=== PATIENT | female | born 1960 | race American Indian/Alaskan Native ===

== ENCOUNTER 2017-12-23 21:45 | Emergency (ER) | payer SELFPAY ==
[2017-12-23 22:59] LABS: Bilirubin,Urine NEG (Negative); Blood,Urine NEG (Negative); Color,Urine Yellow (Yellow); Mucus,Urine FEW /HPF; Protein,Urine <15 mg/dL mg/dL (Negative); Urobilinogen,Urine < 2.0 mg/dL (<2.0); WBC,Urine < 1.0 /HPF (0.0-6.0)
[2017-12-24] MEDS ORDERED: NACL 0.9% 1000 ML 1,000 ML IV ONE (01:08)
[2017-12-24] MEDS ORDERED: ZOFRAN IV ONE (01:08)
[2017-12-24] MEDS ORDERED: TYLENOL #3 PO ONE (01:09)
[2017-12-24] MEDS ORDERED: NACL ONE (02:49)
--- NOTE | 2017-12-24 03:11 | Emergency Department Report ---
HPI - General Chief Complaint: Abdominal Pain Time Seen by Provider: 12/24/17 00:32 - HPI HPI: The patient is a 57-year-old female presents for evaluation of abdominal pain. The patient reports abdominal pain for the past 2-3 days, constant, 10/10 in severity, crampy in quality, exacerbated with movement, and associated with nausea and nonbilious, nonbloody emesis. The patient denies trauma to the abdomen, fever, chills, night sweats, diarrhea, blood in the stool, dark tarry stool, dysuria, hematuria, flank pain, genital discharge, inability to pass flatus. ED Past Medical Hx - Past Medical History Previous Medical History?: Yes Hx Hypertension: Yes Additional medical history: stomach ulcers - Surgical History Past Surgical History?: Yes Additional Surgical History: tubal ligation, left leg surgery - Social History Smoking Status: Never Smoker Substance Use Type: None ED Review of Systems ROS: Stated complaint: N/V Other details as noted in HPI Constitutional: denies: fever ENT: denies: throat or neck pain Respiratory: denies: cough, shortness of breath Cardiovascular: denies: chest pain Endocrine: denies unexplained weight loss or gain Gastrointestinal: reports: abdominal pain, nausea Genitourinary: denies: dysuria Musculoskeletal: denies: leg swelling Skin: denies: rash Neurological: denies: headache Hematological/Lymphatic: denies: easy bleeding or easy bruising Psych: denies sadness or hopelessness Physical Exam - Physical Exam Vital Signs: Vital Signs 12/23/17 12/24/17 12/24/17 22:09 01:15 02:16 Temperature 98.2 F Pulse Rate 86 Respiratory 17 18 18 Rate Blood Pressure 134/85 Blood Pressure 134/85 [Right] O2 Sat by Pulse 96 99 Oximetry Physical Exam: General: well-nourished, well-developed, no acute distress Head: Normocephalic, atraumatic Eyes: normal sclera ENT: Mucous membranes are pale and dry Neck: trachea midline, neck supple, No neck stiffness, no cervical adenopathy Respiratory: Breath sounds equal bilaterally, no wheezing, rales, or rhonchi Cardio: S1 and S2 present, no murmurs, rubs, gallops, capillary refill is delayed Abdomen: Normoactive bowel sounds, soft abdomen, periumbilical and epigastric tenderness to palpation present, no pain at McBurney's point, no rigidity, no guarding or rebound tenderness Musc: No pitting edema Skin: No rash Neuro: Alert, oriented to person and location, disoriented to time and situation , no facial drooping, mildly slurred speech Psych: Normal affect ED Course Vital Signs 12/23/17 12/24/17 12/24/17 22:09 01:15 02:16 Temperature 98.2 F Pulse Rate 86 Respiratory 17 18 18 Rate Blood Pressure 134/85 Blood Pressure 134/85 [Right] O2 Sat by Pulse 96 99 Oximetry ED Medical Decision Making - Lab Data Result diagrams: 12/23/17 04:45 12/23/17 04:45 - Medical Decision Making The patient was seen and examined by myself. The patient is placed on a spot worker and continuous pulse ox. On initial evaluation, the patient was found to be in no distress, but refusing lab draw and CT scan abdomen and pelvis. The patient has mild cognitive deficit and is not competent to refuse evaluation and medical care as she is disoriented and cannot verbalize understanding of risks of refusing further evaluation and treatment and potential benefits of further evaluation and treatment. As such a 1013 was completed. The patient is given pain medicine. Lab results revealed a mildly elevated lipase of 95, and otherwise labs were nonrevealing including WBC, hemoglobin, hematocrit, electrolytes, renal function, LFTs. The patient was reevaluated and is now compliant with evaluation studies and treatments. The 101[address]ind[address]. A [address] scan of the abdomen and pelvis is pending. The patient is signed off to the oncoming morning shift ED physician, Dr. Sun, whom agrees to accept transfer Of care of the patient, to follow up on the patients pending CT scan of the abdomen and pelvis and to arrange ultimate appropriate disposition. Critical care attestation.: If time is entered above; I have spent that time in minutes in the direct care of this critically ill patient, excluding procedure time. ED Disposition Clinical Impression: Abdominal pain, acute, periumbilical, Dehydration Nausea and vomiting Qualifiers: Vomiting type: unspecified Vomiting Intractability: non-intractable Qualified Code(s): R11.2 - Nausea with vomiting, unspecified Acute pancreatitis Qualifiers: Pancreatitis type: unspecified pancreatitis type Acute pancreatitis complication: unspecified Qualified Code(s): K85.90 - Acute pancreatitis without necrosis or infection, unspecified Disposition: TO HOME OR SELFCARE Is pt being admited?: No Condition: Undetermined Instructions: Abdominal Pain (ED) Referrals: PRIMARY CARE, [Primary Care Provider] - 3-5 Days Time of Disposition: 03:11
[2017-12-24] MEDS ORDERED: ATIVAN ONE (03:28)
[2017-12-24] MEDS ORDERED: ATIVAN IM ONE (03:30)
[2017-12-24 05:10] LABS: Basophils % (Auto) 0.9 % (0.0-1.8); Eosinophils # (Auto) 0.1 K/mm3 (0.0-0.4); Hematocrit 39.9 % (30.3-42.9); Hemoglobin 12.9 gm/dl (10.1-14.3); Lymphocytes # (Auto) 1.8 K/mm3 (1.2-5.4); Lymphocytes % (Auto) 48.5 % (13.4-35.0); Mean Corpuscular HGB Conc 32 % (30-34); Mean Corpuscular Hemoglobin 28 pg (28-32); Mean Corpuscular Volume 86 fl (79-97); Monocytes # (Auto) 0.3 K/mm3 (0.0-0.8); Monocytes % (Auto) 8.8 % (0.0-7.3); Platelet Count 218 K/mm3 (140-440); Red Blood Count 4.65 M/mm3 (3.65-5.03); Red Cell Distribution Width 14.5 % (13.2-15.2)
[2017-12-24 05:21] LABS: Alanine Aminotransferase 16 units/L (7-56); Albumin 4.6 g/dL (3.9-5); BUN/Creatinine Ratio 30; Blood Urea Nitrogen 12 mg/dL (7-17); Calcium 10.1 mg/dL (8.4-10.2); Hemolysis Index 2
[2017-12-24 06:18] VITALS: BP 128/82
--- NOTE | 2017-12-24 06:56 | Cat Scan Report ---
FINAL REPORT EXAM: CT ABDOMEN PELVIS W CON HISTORY: abdominal pain TECHNIQUE: Routine axial imaging was obtained of the abdomen and pelvis following the intravenous injection of 100 cc of Omnipaque 300. Delayed imaging was obtained through the kidneys ureters and bladder. Sagittal coronal reconstructions were reviewed. FINDINGS: The lung bases are clear. Liver is at the upper limits of normal in size and reveals a 6.6 mm cyst in the right hepatic lobe. The gallbladder, biliary tree, pancreas, spleen, and adrenal glands appear normal. The kidneys show no evidence of stones or hydronephrosis. There is a 13 mm cyst in the middle 3rd of the right kidney. The vascular structures enhance normally. The bowel loops are not distended. There is no evidence of free fluid or adenopathy. The appendix is not enlarged. In the pelvis the uterus and bladder appear normal. The skeletal structures reveal a levoscoliosis of the lumbar spine. IMPRESSION: No acute process in the abdomen and pelvis. Benign-appearing cysts in the right hepatic lobe and right kidney.
--- NOTE | 2017-12-24 08:59 | Emergency Department Report ---
Blank Doc - Documentation Documentation: Patient states she is feeling better. No tenderness to palpation of her abdomen. Discussed CT results with patient. Patient stable for discharge. Patient to follow up with primary care. Patient given discharge instructions. Patient given prescription instructions. Labs discussed with patient. at bedside during discussion. Patient to be discharged home
== END 2017-12-24 09:45 | disposition home or self-care (01) ==
LOC: ED 21:45
DX: K85.90 Acute pancreatitis without necrosis or infection, unspecified (principal); E86.0 Dehydration; I10 Essential (primary) hypertension
CPT/HCPCS: 36415; 74177; 80053; 81001; 83690; 85025; 96361; 96372; 96374; 99284; J2060; J2405; J7030; Q9967

== ENCOUNTER 2018-02-10 13:38 | Emergency (ER) | payer SELFPAY ==
[2018-02-10 14:35] VITALS: BP 126/64
[2018-02-10] MEDS ORDERED: PEPCID PO ONE (16:21)
[2018-02-10] MEDS ORDERED: ZOFRAN ODT PO ONE (16:21)
[2018-02-10] MEDS ORDERED: ALUM-MAG HYDROX-SIMETH 200-200-20MG/5ML PO ONE (16:21)
--- NOTE | 2018-02-10 18:32 | Emergency Department Report ---
ED Abdominal Pain HPI - General Chief Complaint: Nausea/Vomiting/Diarrhea Stated Complaint: N&V Time Seen by Provider: 02/10/18 16:10 Source: patient, family Mode of arrival: Ambulatory Limitations: No Limitations - History of Present Illness Initial Comments: Patient is a 57-year-old black female past history alcohol abuse who is coming in with epigastric discomfort and nausea vomiting. Patient states she's vomited blood several times today. Patient is a poor historian and for the most part just says she's sick for most questions. Patient is unable to quantify how much pain she is in at this time. Patient is denying any diarrhea. - Related Data Previous Rx's Medication Instructions Recorded Last Taken Type Ondansetron [Zofran Odt] 4 mg PO Q6HR PRN #20 tab.rapdis 12/24/17 Unknown Rx Dicyclomine [Bentyl] 10 mg PO QID #15 capsule 02/10/18 Unknown Rx Famotidine [Pepcid] 40 mg PO QHS #20 tablet 02/10/18 Unknown Rx Ondansetron [Zofran Odt] 4 mg PO Q8HR PRN #10 tab.rapdis 02/10/18 Unknown Rx Allergies Allergy/AdvReac Type Severity Reaction Status Date / Time No Known Allergies Allergy Unverified 12/23/17 22:15 ED Review of Systems ROS: Stated complaint: N&V Other details as noted in HPI Comment: All other systems reviewed and negative ED Past Medical Hx - Past Medical History Hx Hypertension: Yes Additional medical history: stomach ulcers - Surgical History Additional Surgical History: tubal ligation, left leg surgery - Social History Smoking Status: Current Every Day Smoker Substance Use Type: None - Medications Home Medications: Home Medications Medication Instructions Recorded Confirmed Last Taken Type Ondansetron [Zofran Odt] 4 mg PO Q6HR PRN #20 tab.rapdis 12/24/17 Unknown Rx Dicyclomine [Bentyl] 10 mg PO QID #15 capsule 02/10/18 Unknown Rx Famotidine [Pepcid] 40 mg PO QHS #20 tablet 02/10/18 Unknown Rx Ondansetron [Zofran Odt] 4 mg PO Q8HR PRN #10 tab.rapdis 02/10/18 Unknown Rx ED Physical Exam - General Limitations: No Limitations General appearance: alert, in no apparent distress - Head Head exam: Present: atraumatic, normocephalic - Eye Eye exam: Present: normal appearance - ENT ENT exam: Present: mucous membranes moist - Neck Neck exam: Present: normal inspection - Respiratory Respiratory exam: Present: normal lung sounds bilaterally. Absent: respiratory distress, wheezes, rales, rhonchi - Cardiovascular Cardiovascular Exam: Present: regular rate, normal rhythm. Absent: systolic murmur, diastolic murmur, rubs, gallop - GI/Abdominal GI/Abdominal exam: Present: soft, normal bowel sounds. Absent: distended, tenderness, guarding, rebound - Extremities Exam Extremities exam: Present: normal inspection - Back Exam Back exam: Present: normal inspection - Neurological Exam Neurological exam: Present: alert, oriented X3 - Psychiatric Psychiatric exam: Present: normal affect, normal mood - Skin Skin exam: Present: warm, dry, intact, normal color. Absent: rash ED Course Vital Signs 02/10/18 14:32 Temperature 98.3 F Pulse Rate 79 Respiratory 16 Rate Blood Pressure 126/64 O2 Sat by Pulse 96 Oximetry ED Medical Decision Making - Medical Decision Making Patient's vomit was actually look that here in emergency department and was cleared to do not appear to be any blood present. Patient has been drinking this morning. Patient most likely has alcoholic gastritis given meds here in the emergency department for her nausea. Patient's was monitored appears stable and is resting and actually hungry. Patient be discharged home. Critical care attestation.: If time is entered above; I have spent that time in minutes in the direct care of this critically ill patient, excluding procedure time. ED Disposition Clinical Impression: Alcoholic gastritis Disposition: DC-01 TO HOME OR SELFCARE Is pt being admited?: No Does the pt Need Aspirin: No Condition: Stable Instructions: Gastritis (ED) Prescriptions: Famotidine [Pepcid] 40 mg PO QHS #20 tablet Dicyclomine [Bentyl] 10 mg PO QID #15 capsule Ondansetron [Zofran Odt] 4 mg PO Q8HR PRN #10 tab.rapdis PRN Reason: Nausea And Vomiting Referrals: PRIMARY CARE, [Primary Care Provider] - 3-5 Days
== END 2018-02-10 18:43 | disposition home or self-care (01) ==
LOC: EDBD 13:38 → ED 13:38
DX: K29.20 Alcoholic gastritis without bleeding (principal); I10 Essential (primary) hypertension; F17.200 Nicotine dependence, unspecified, uncomplicated; Z98.51 Tubal ligation status
CPT/HCPCS: 99282; Q0162

== ENCOUNTER 2018-03-01 21:17 | Emergency (ER) | payer MEDICARE ==
[2018-03-01 21:27] VITALS: BP 159/102
[2018-03-01] MEDS ORDERED: NACL 0.9% 1000 ML 1,000 ML IV ONE (21:28)
== END 2018-03-01 21:26 | disposition left against medical advice (07) ==
LOC: ED 21:17
DX: R10.9 Unspecified abdominal pain (principal); Z53.21 Procedure and treatment not carried out due to patient leaving prior to being seen by health care provider
CPT/HCPCS: 93005; 93010

== ENCOUNTER 2018-03-03 17:32 | Emergency (ER) | payer MEDICARE ==
--- NOTE | 2018-03-03 18:06 | Emergency Department Report ---
HPI - General Time Seen by Provider: 03/03/18 17:35 - HPI HPI: 57-year-old -[place] female presents to the emergency department via EMS from her residence with what appears to be either intoxication versus generalized altered mental status. The patient is admitting to having a drink today but says "it was just a small can." She does have a history of alcohol dependence and intoxication in the past and the last time she was here was for alcoholic gastritis. The patient says "I don't feel that well" and says that her stomach is upset. She has some nausea without vomiting currently. The patient is hard to understand and is a poor historian. There is no obvious last known well time and we do not have an obvious baseline mental status. Apparently a passerby or someone else at the residence called for EMS we do not know the reason why. ED Past Medical Hx - Past Medical History Hx Hypertension: Yes Hx Asthma: Yes (BRONCHITIS) Additional medical history: stomach ulcers - Surgical History Additional Surgical History: tubal ligation, left leg surgery - Social History Smoking Status: Never Smoker Substance Use Type: Alcohol - Medications Home Medications: Home Medications Medication Instructions Recorded Confirmed Last Taken Type Ondansetron [Zofran Odt] 4 mg PO Q6HR PRN #20 tab.rapdis 12/24/17 Unknown Rx Dicyclomine [Bentyl] 10 mg PO QID #15 capsule 02/10/18 Unknown Rx Famotidine [Pepcid] 40 mg PO QHS #20 tablet 02/10/18 Unknown Rx Ondansetron [Zofran Odt] 4 mg PO Q8HR PRN #10 tab.rapdis 02/10/18 Unknown Rx ED Review of Systems ROS: Stated complaint: DIFFICULTY BREATHING Other details as noted in HPI Comment: Unobtainable due to pts medical conditions Physical Exam - Physical Exam Physical Exam: GENERAL: The patient is well-developed well-nourished. HENT: Normocephalic. Atraumatic. Patient has moist mucous membranes. EYES: Extraocular motions are intact. Pupils equal reactive to light bilaterally. No nystagmus. NECK: Supple. Trachea is midline. CHEST/LUNGS: Clear to auscultation. There is no respiratory distress noted. HEART/CARDIOVASCULAR: Regular. There is mild tachycardia. There is no murmur. ABDOMEN: Abdomen is soft, nontender. Patient has normal bowel sounds. There is no abdominal distention. SKIN: Skin is warm and dry. NEURO: The patient is awake, alert, and oriented but does appear intoxicated. Cranial nerves II through XII grossly intact. No pronator drift. No dysmetria. No facial asymmetry. MUSCULOSKELETAL: There is no tenderness or deformity. There is no limitation range of motion. There is no evidence of acute injury. ED Course - Reevaluation(s) Reevaluation #1: 03/03/18 18:17 All the patient does appear intoxicated, she is refusing anything that involves a needlestick. She has allowed urine to be sent, an EKG to be done and will allow a CT scan of the head to rule out a bleed or possibly ischemic event. The patient is currently calm and appropriate and therefore we will respect her wishes for no needlestick and her denial for obtaining blood work. We will continue to monitor her. ED Medical Decision Making - EKG Data -: EKG Interpreted by Pr EKG shows normal: sinus rhythm, axis, intervals, QRS complexes (Q waves to the septal leads), ST-T waves Rate: normal - EKG Data When compared to previous EKG there are: no significant change Interpretation: unchanged when compared t (03/01/18) - Radiology Data Radiology results: report reviewed CT of the head does not show any acute intracranial process including no ischemia, shift, mass, bleeding or skull fracture. - Medical Decision Making The patient originally came in appearing intoxicated but denies heavy drinking. However the patient is awake, alert and oriented. The patient would not allow blood work to be done as she does not want anything that involves a needlestick. Going back into her records, she did the same thing when she was here for alcoholic gastritis in January. However the patient was compliant with a CT scan of the head that did not show any signs of any bleed, shift, mass, ischemic changes or any acute process. She'll add an EKG be done which did not show any signs of ST elevation ND, or dysrhythmia. And she gave us a urine sample that did not show any urinary tract infection or any positive illicit drugs on the urine drug screen. Since the patient was calm and appropriate and adamantly refused blood work to be done, she was monitored for about 9 hours in total in the emergency department. Over this time, the patient became more alert and less intoxicated appearing. Towards the end of her ED course the patient says she was feeling better and eventually got up and eloped. We noted that the last vital sign was placed in the chart was at about 6:30 PM and the patient eloped closer to 2 AM. When I last reevaluated her, she did not have any further tachycardia. - Differential Diagnosis alcohol intoxication, substance abuse, TIA Critical Care Time: No Critical care attestation.: If time is entered above; I have spent that time in minutes in the direct care of this critically ill patient, excluding procedure time. ED Disposition Clinical Impression: History of alcohol dependence Disposition: ELOPED Is pt being admited?: No Condition: Stable Referrals: PRIMARY CARE, [Primary Care Provider] - 3-5 Days Time of Disposition: 02:35
[2018-03-03 18:25] LABS: Bacteria,Urine 1+ /HPF (Negative); Bilirubin,Urine NEG (Negative); Blood,Urine NEG (Negative); Color,Urine Straw (Yellow); Protein,Urine <15 mg/dL mg/dL (Negative); Urobilinogen,Urine < 2.0 mg/dL (<2.0)
[2018-03-03 18:35] LABS: Amphetamine Screen,Urine PRESUMPTIVE NEGATIVE; Benzodiazepines Screen,Urine PRESUMPTIVE NEGATIVE; Cannabinoid Screen,Urine PRESUMPTIVE NEGATIVE; Cocaine Screen,Urine PRESUMPTIVE NEGATIVE; Methadone Screen,Urine PRESUMPTIVE NEGATIVE; Opiate Screen,Urine PRESUMPTIVE NEGATIVE
--- NOTE | 2018-03-03 18:44 | Cat Scan Report ---
FINAL REPORT PROCEDURE: CT HEAD/BRAIN WO CON TECHNIQUE: Computerized tomography of the head was performed without contrast material. HISTORY: AMS COMPARISON: No prior studies are available for comparison. FINDINGS: There is diffuse prominence of the ventricular system, which may be related to central atrophy. Temporal horns do not appear dilated out of proportion to the remainder of the ventricles. There is also cerebellar atrophy. There is no CT evidence of intracranial mass, hemorrhage, acute territorial infarction, or hydrocephalus. No acute fracture is seen. Minimal left maxillary sinus mucosal thickening. There is a trace amount of fluid density in the left mastoid.. IMPRESSION: No CT evidence of acute intracranial abnormality
[2018-03-03 18:50] VITALS: BP 108/67
== END 2018-03-04 03:07 | disposition left against medical advice (07) ==
LOC: ED 17:32
DX: F10.229 Alcohol dependence with intoxication, unspecified (principal); I10 Essential (primary) hypertension; J45.909 Unspecified asthma, uncomplicated; Z98.51 Tubal ligation status
CPT/HCPCS: 70450; 80307; 81001; 93005; 93010

== ENCOUNTER 2018-11-29 12:08 | Emergency (ER) | payer MEDICARE ==
[2018-11-29 12:21] VITALS: BP 181/103
--- NOTE | 2018-11-29 12:34 | Emergency Department Report ---
Blank Doc - Documentation Documentation: This is a 58-year-old female that presents with rash to neck, left axilla, and left abdominal area. Denies any SOB or facial swelling. This initial assessment/diagnostic orders/clinical plan/treatment(s) is/are subject to change based on patient's health status, clinical progression and re- assessment by fellow clinical providers in the ED. Further treatment and workup at subsequent clinical providers discretion. Patient/guardians urged not to elope from the ED as their condition may be serious if not clinically assessed and managed. Initial orders include: 1- Patient sent to [facility] for further evaluation and treatment
[2018-11-29] MEDS ORDERED: DECADRON IM ONE (12:57)
--- NOTE | 2018-11-29 12:59 | Emergency Department Report ---
ED Rash HPI - HPI Chief Complaint: Skin Rash Stated Complaint: RASH ALL OVER Time Seen by Provider: 11/29/18 12:21 Duration: WEEKS Location: Other (GEN; STARTED ON [facility]) Suspected Cause: Unknown Rash Symptoms: Yes Itching, No Facial Swelling, No Tongue/Oral Swelling, No Breathing Difficulties, No Choking Sensation, No Wheezing/Dyspnea, No Peeling, No Blistering, No Fever, No Lightheaded, No Malaise, No Myalgias Severity: moderate Other History: Patient is a 58-year-old female who comes to the ER today with a rash that appears like it has been present for some time. It is thick erythematous and scaly. It started on her torso and has spread to her arms and neck. Pt knows of no precipitating event or exposure. No known allergens. She denies having anything like this in the past. She has been using a cocktail of [id number]-[id number] creams and one prescription steroid cream when she states is not getting any better. She has not seen a primary care physician or steam pan sponger. Patient is ambulatory, nontoxic and afebrile on admission. There are no oral or ocular lesions. She has no fever. She is taking by mouth without difficulty. ED Review of Systems ROS: Stated complaint: RASH ALL OVER Other details as noted in HPI Comment: All other systems reviewed and negative Constitutional: denies: chills Eyes: denies: eye pain ENT: denies: throat pain Respiratory: denies: see HPI Cardiovascular: denies: palpitations Endocrine: denies: intolerance to cold Gastrointestinal: denies: nausea Genitourinary: denies: dysuria Musculoskeletal: denies: back pain Skin: as per HPI, rash Neurological: denies: headache Psychiatric: denies: anxiety Hematological/Lymphatic: denies: easy bleeding ED Past Medical Hx - Past Medical History Previous Medical History?: Yes Hx Hypertension: Yes Hx Asthma: Yes (BRONCHITIS) Additional medical history: stomach ulcers - Surgical History Past Surgical History?: Yes Additional Surgical History: tubal ligation, left leg surgery - Family History Family history: no significant - Social History Smoking Status: Never Smoker Substance Use Type: None - Medications Home Medications: Home Medications Medication Instructions Recorded Confirmed Last Taken Type predniSONE [Deltasone] 20 mg PO DAILY #5 tablet 11/29/18 Unknown Rx Rash Exam - Exam General: Vital signs noted. No distress. Alert and acting appropriately. HEENT: No Periorbital Edema, No Conjuctival Injection, No Chemosis, No Perioral Edema, No Tongue Edema, No Uvular Edema, No Compromised Airway, No Drooling Lungs: Yes Good Air Exchange, No Wheezes, No Ronchi, No Stridor, No Cough, No Labored Respirations, No Retractions, No Use of Accessory Muscles, No Other Abnormal Lung Sounds Heart: Yes Regular, No Murmur Skin: Yes Erythema, Yes Edema, Yes Encrustations (thick scaly appearing on torso and up to neck. no oral or mouth lesions. no drainage. no systemic symptoms. ), No Urticarial Rash, No Maculopapular Rash, No Morbilliform rash, No Bulla(e), No Excoriations, No Weeping, No Tenderness Other: Positive: Abdomen Normal, Neurologic Normal, Musculoskeletal Normal ED Course Vital Signs 11/29/18 12:18 Temperature 97.8 F Pulse Rate 73 Respiratory 18 Rate Blood Pressure 181/103 O2 Sat by Pulse 97 Oximetry ED Medical Decision Making - Medical Decision Making Rashes been present for sometimes. It is not an acute rash. There are no associated systemic symptoms. Patient is afebrile. Patient has probably been making the rash worse by using a cocktail of [id number] medications/creams. Patient and family were educated on appropriate use of her cream. Patient instructed to take Benadryl [id number] for itching. She has been sent home on a five-day course of prednisone. I've also discussed with the patient and her family the need to follow up with a steam pan sponger to come biopsy and definitively diagnose the rash. They verbalized understanding. Vital Signs 11/29/18 12:18 Temperature 97.8 F Pulse Rate 73 Respiratory 18 Rate Blood Pressure 181/103 O2 Sat by Pulse 97 Oximetry Pt's bp noted to be inc. she did take her bp med but states that she is itching and that is the cause. pt and family counseled on bp monitoring and they will follow up with the pcp. Critical care attestation.: If time is entered above; I have spent that time in minutes in the direct care of this critically ill patient, excluding procedure time. ED Disposition Clinical Impression: Contact dermatitis, HTN (hypertension) Disposition: TO HOME OR SELFCARE Is pt being admited?: No Does the pt Need Aspirin: No Condition: Stable Instructions: Contact Dermatitis (ED), Hypertension (ED) Additional Instructions: USE ONLY THE CREAM THAT WE DISCUSSED OVER THE COUNTER BENADRY FOR ITCHING MEDS ORDERED TODAY FOLLOW UP WITH DERM REFERRAL BELOW TAKE YOUR DAILY BP MEDS LOW SALT LOW FAT DIET FOLLOW UP WITH PCP TO BE SURE YOUR BLOOD PRESSURE COMES DOWN Prescriptions: predniSONE [Deltasone] 20 mg PO DAILY #5 tablet Referrals: SABIHA RIOS MD [Referring] - 3-5 Days Time of Disposition: 12:57
[2018-11-29] MEDS ORDERED: DELTASONE PO ONE (13:05)
[2018-11-29] MEDS ORDERED: DELTASONE ONE (13:08)
== END 2018-11-29 13:30 | disposition home or self-care (01) ==
LOC: ED 12:08
DX: L25.9 Unspecified contact dermatitis, unspecified cause (principal); I10 Essential (primary) hypertension; J45.909 Unspecified asthma, uncomplicated; Z98.51 Tubal ligation status
CPT/HCPCS: 99282; J1100; J7512

== ENCOUNTER 2021-03-27 20:17 | Emergency (ER) | payer MEDICARE ==
[2021-03-27 21:03] VITALS: BP 206/114
== END 2021-03-28 03:11 | disposition left against medical advice (07) ==
LOC: ED 20:17
DX: R10.32 Left lower quadrant pain (principal); R11.2 Nausea with vomiting, unspecified; Z53.21 Procedure and treatment not carried out due to patient leaving prior to being seen by health care provider

== ENCOUNTER 2022-03-19 22:04 | Emergency (ER) | payer MEDICARE | END 2022-03-19 22:45 | disposition left against medical advice (07) | LOC: ED 22:04 | DX: R21 Rash and other nonspecific skin eruption (principal); Z53.21 Procedure and treatment not carried out due to patient leaving prior to being seen by health care provider ==